=== PATIENT | male | born 1950 | race Caucasian/White ===

== ENCOUNTER 2023-02-08 05:37 | Day surgery (SDC) | payer OTHER ==
[~2023-02-08] VITALS: Ht 177.8 cm; Wt 72.6 kg
[~2023-02-08 05:37] MED LIST: AZOR 5-20 MG T1 EACH PO; PRAVASTATIN SOD40 MG PO; TRILIPIX135 MG PO
== END 2023-02-08 14:45 | disposition home or self-care (01) ==
LOC: CIR.AMB 05:37
PROVIDERS: ATTEND Specialist
DX: L72.0 Epidermal cyst (principal); I10 Essential (primary) hypertension; Z20.822 Contact with and (suspected) exposure to COVID-19